=== PATIENT | female | born 1955 | race Caucasian/White ===

== ENCOUNTER 2018-03-05 16:31 | Inpatient (IN) | payer OTHER ==
[2018-03-05] MEDS ORDERED: CYCLOBENZAPRINE 10 MG TAB PO PRN ×2 (17:54→20:15)
[2018-03-05] MEDS ORDERED: oxyCODONE IR 5 MG TAB PO PRN (20:15)
[2018-03-05] MEDS ORDERED: POLYETHYLENE GLYCOL 3350 17 GM PKT PO PRN (20:17)
[2018-03-05] MEDS ORDERED: SENNOSIDES 1 TAB PO PRN (20:17)
[2018-03-05] MEDS: metFORMIN HCL 500 MG TAB PO SCH (20:41)
[2018-03-05] MEDS: oxyCODONE IR 5 MG TAB PO PRN (20:42)
[2018-03-05] MEDS: amLODIPine BESYLATE 5 MG TAB PO SCH (20:43)
[2018-03-05] MEDS: ATENOLOL 50 MG TAB PO SCH (20:43)
[2018-03-06] MEDS: LISINOPRIL 40 MG TAB PO SCH (08:42)
[2018-03-06 09:09] LABS: PLATELET COUNT 250 10^3/uL (150-400)
[2018-03-06] MEDS: TRIAMTERENE/HCTZ 37.5/25 1 EACH CAP PO SCH (11:40)
[2018-03-06] MEDS: ESTROGENS,CONJUGATED 0.625 MG TAB PO SCH (11:40)
--- NOTE | 2018-03-06 13:06 | GHP ---
POST ADMISSION PHYSICIAN EVALUATION AND REHABILITATION TREATMENT PLAN. DATE OF ADMISSION: 03/05/2018 DATE OF EVALUATION: 03/06/2018. TIME OF EVALUATION: 1125. REFERRING FACILITY: [facility]. REFERRING PHYSICIAN: Dr. Sanchez CONSULTING PHYSICIANS: None. REHABILITATION DIAGNOSIS: Debility, status post anterior cervical decompression and fusion at C5-C6 and C6-C7. IMPAIRMENT GROUP: 4.130. ETIOLOGIC DIAGNOSIS: Other nontraumatic spinal cord dysfunction. DATE OF ONSET: 03/01/2018. DATE OF SURGERY: 03/01/2018. HISTORY OF PRESENT ILLNESS: This patient has had difficulty with her gait for approximately a year. She eventually had imaging of the cervical spine done in July of this year. It showed moderate to severe central canal stenosis at C5- C6 and C6-C7. She underwent an anterior cervical decompression and fusion at C5 -C6 and C6-C7. Hospital stay was relatively uncomplicated. She had needs for pain control and she had dysphagia after her surgery. Given her gait issues and her dysphagia, she was appropriate for inpatient rehabilitation, where she was transferred once she was medically stabilized. STUDIES AND LABS IN THE HOSPITAL: I have lab results from prior to surgery. Basic metabolic profile was within normal limits. CBC was also normal. Coagulation studies were normal. PRECAUTIONS: She is a fall risk and she has aspiration precautions. Additionally, she has orthopedic spine precautions. ACTIVE COMORBIDITIES: She has the tier 2 comorbidity of dysphagia. She has the tier 3 comorbidity of diabetes mellitus, but she does not have any manifestations of it. PAST MEDICAL HISTORY: 1. Benign paroxysmal positional vertigo. 2. Hypertension. 3. Diabetes mellitus, type 2. PAST SURGICAL HISTORY: She had a cyst removed from her left breast when she was 15 years old. She has had bladder surgeries x3. PRE-HOSPITAL MEDICATIONS: 1. Amlodipine 5 mg p.o. at bedtime. 2. Atenolol 50 mg p.o. at bedtime. 3. Conjugated estrogens 0.625 mg p.o. daily. 4. Lisinopril 40 mg p.o. daily. 5. Metformin 500 mg on Sunday, Sunday, Sunday and Sunday at 2100. 6. Triamterene/hydrochlorothiazide 37.5/25 mg at bedtime. ADMISSION MEDICATIONS: 1. Amlodipine 5 mg p.o. at bedtime. 2. Atenolol 50 mg p.o. at bedtime. 3. Cyclobenzaprine 10 mg p.o. three times daily p.r.n. muscle spasm. 4. Estrogens 0.625 mg p.o. daily. 5. Lisinopril 40 mg p.o. daily. 6. Metformin 500 mg p.o. q. Sunday, Sunday, Sunday, and Sunday at 2100. 7. Oxycodone 5 mg p.o. q.4 hours p.r.n. 8. Triamterene/hydrochlorothiazide 37.5/25 mg 1 p.o. at bedtime. ALLERGIES: There are no known drug allergies. PSYCHOSOCIAL HISTORY: She lives alone in an apartment with a few steps to enter. She has an adult daughter, who is with children and lives in [place]. She had an adult son, who in 2013. She has worked in [employer]. She is a nonsmoker. FAMILY HISTORY: Noncontributory. REVIEW OF SYSTEMS: She continues to have balance and gait issues. She otherwise denies headaches, vision changes, numbness, tingling or weakness of the extremities. She says that with her vertigo, she typically has to sit for several moments before standing up when she arises from bed and similarly has to be careful with sudden position changes. She reports a history of urinary issues and says that after she finishes urinating, she spends some more time sitting on the toilet and typically urinates more. She denies fevers or chills , cough or dyspnea, weight change, nausea, vomiting, constipation, or diarrhea. She denies joint pain or joint swelling. She reports itching along her incision. She reports her pain is adequately controlled. Otherwise, a 10- point review of systems is negative. PHYSICAL EXAM: VITALS: Blood pressure is 138/90, heart rate is 67, respiratory rate is 16, oxygen saturation is 93% on room air, temperature is 36.6 degrees centigrade. Her weight is 73.9 kg for a body mass index of 26.3. GENERAL: This is a well-nourished, well-developed woman, who appears her chronologic age, sitting up on the edge of the bed, cooperative and in no acute distress. HEENT: Extraocular movements are intact. Pupils are equal, round, and reactive to light. Mucous membranes are moist. Dentition is in good condition. She has a moderately crowded airway, Mallampati class 2. NECK: Incision is covered with Steri-Strips. There is no discharge, erythema or swelling, and there is no dehiscence. HEART: There is a regular rate and rhythm, with no murmurs, rubs, or gallops. LUNGS: Clear to auscultation bilaterally. ABDOMEN: Soft, nontender, nondistended, with normoactive bowel sounds and no hepatosplenomegaly. EXTREMITIES: There is no cyanosis, clubbing , or edema. NEUROLOGIC: She is alert and oriented x3. Cranial nerves 2-12 are grossly intact. She has weakness bilaterally in the triceps. Otherwise, motor strength is 5/5 overall. Deep tendon reflexes are 2+ bilaterally at the biceps, patellar, and patellar tendons and are hypoactive at the Achilles tendon. PSYCHIATRIC: She gets tearful when discussing her son's in 2013 and her months of progressive debility. CURRENT LEVEL OF FUNCTION: Per the preadmission screen. She was on a dysphagia 2 diet with thin liquids. She is to be at 90 degrees seated while eating and her head of the bed is to be at 30 degrees at all times. She did grooming with minimal assist and voice cues. She brushed her teeth standing. Dressing upper body and lower body required minimal assist. Toileting was done with minimal assistance and adaptive equipment. Bed mobility required minimal assist. Transfers required moderate assist. She used a front-wheeled walker. Level of assistance for seated balance ranged from minimal assist to independent. Standing balance required minimal to moderate assist. Endurance was fair. She was able to ambulate with a front-wheeled walker and moderate assist of 2 with voice cues and a gait belt for 8 feet. She had loss of balance x2, requiring maximal assist to correct. She relies heavily on the walker. Communication and cognition were considered normal. She was noted to have minimal quadriceps strength. On today's exam, she is able to maintain seated balance independently, and she has normal quad strength. Otherwise, there are no significant changes from the preadmission screen. IMPRESSION: This is a 62-year-old woman, who has had longstanding issues with gait and balance, which finally were attributed to cervical spinal stenosis. She underwent surgery with an anterior cervical decompression and fusion of C5- C6 and C6-C7. She has come through surgery well, but has dysphagia, likely as a consequence of edema related to the surgical procedure, and she continues to have balance and gait difficulty. She is an excellent candidate for rehabilitation, where she will benefit greatly from speech and language pathology, as well as physical therapy and occupational therapy regarding her deficits. She has hypertension and diabetes mellitus, type 2. She reports that she has been able to exercise and lose weight and metformin has been reduced to a daily dose on 4 days of the week. She has benign paroxysmal positional vertigo, which will need to be kept in mind regarding her balance and function as she proceeds with therapies. Her goal is to complete a rehabilitation stay and then return home with home health care and durable medical equipment as needed. For a safe discharge, it is anticipated that she will achieve independence with eating, and modified independence for activities of daily living and for mobility with the least restrictive device. She will tolerate the least restrictive diet. She will maintain spinal precautions throughout all functional tasks. She will likely require assistance for household management and shopping. She will have therapy with Physical Therapy, Occupational Therapy, and Speech and Language Pathology for 60 minutes per day for each discipline on 5-7 days of the week. Her expected duration of stay is 7-10 days. It is anticipated that upon discharge, she will continue to benefit from home health services including nursing, speech and language pathology, a nurse aide, social work, occupational therapy, and physical therapy. PLAN: 1. Debility with balance impairment due to cervical spinal stenosis, now status post ACDF of C5-C6 and C6-C7 on 03/01/2018. PT and OT to optimize mobility and activities of daily living toward the modified independence level. 2. Dysphagia. Assessment and treatment per SALES REPRESENTATIVE [employer]. She was initially on a dysphagia 2 diet with thin liquids. 3. Hypertension. Continue atenolol 50 mg at bedtime, amlodipine 5 mg at bedtime, and lisinopril 40 mg p.o. daily. Will change the triamterene/ hydrochlorothiazide combination from bedtime to daily. This was done last night and she slept better without interruptions to urinate. 4. Diabetes mellitus, type 2. Continue metformin as per her dosing prior to the hospital. 5. Pain management. She has been discharged on oxycodone 5 mg q.4 hours p.r.n. I will change this to 5-10 mg q.3 hours p.r.n. to ensure that she has adequate coverage to be able to sleep well and participate in therapies. I will add acetaminophen, as well. Unclear regarding the role of cyclobenzaprine. She did not use it on her 1st evening and morning on the rehabilitation unit. 6. Postmenopausal state. Continue estrogen replacement. 7. Benign paroxysmal positional vertigo. Await further evaluation per PT and OT regarding how this affects her mobility and activities of daily living. 8. Bladder emptying abnormality, status post bladder surgery x3. She will have bladder scanning for postvoid residuals. If the residuals are markedly elevated, she may benefit from learning how to self-catheterize versus medication approaches, especially considering that oxycodone and cyclobenzaprine may interfere with bladder emptying. 9. Prophylaxis. She was using enoxaparin for pharmacologic DVT prophylaxis in the hospital. Will await progress with Physical Therapy regarding her mobility. If she is able to ambulate 150 feet or greater 3 times a day, will not continue DVT prophylaxis. If her mobility is significantly limited, we will continue enoxaparin. 10. Followup. She is to follow up with Dr. Sanchez in 2 weeks, which will be approximately March 20, 2018. It is likely that she will have discharged home before then. /[id number]/MODL MTDD
[2018-03-06] MEDS: oxyCODONE IR 5 MG TAB PO PRN (21:19)
[2018-03-06] MEDS: ATENOLOL 50 MG TAB PO SCH (21:19)
[2018-03-06] MEDS: amLODIPine BESYLATE 5 MG TAB PO SCH (21:19)
[2018-03-07] MEDS: ESTROGENS,CONJUGATED 0.625 MG TAB PO SCH (08:35)
[2018-03-07] MEDS: LISINOPRIL 40 MG TAB PO SCH (08:35)
[2018-03-07] MEDS: TRIAMTERENE/HCTZ 37.5/25 1 EACH CAP PO SCH (08:36)
[2018-03-07] MEDS ORDERED: CLOBETASOL 0.05% 25 ML TOPICAL SOLUTION TP PRN (09:45)
--- NOTE | 2018-03-07 10:02 | SOAPPROG ---
SOAP Progress Note Assessment/Plan: Assessment: Debility with balance impairment and ataxic gait due to cervical spinal stenosis , now status post ACDF of C5-C6 and C6-C7 on 03/01/2018. PT and OT to optimize mobility and activities of daily living toward the modified independence level. Dysphagia. Assessment and treatment per MARKET SALES MANAGER. She was initially on a dysphagia 2 diet with thin liquids. Hypertension. Well controlled. Continue atenolol 50 mg at bedtime, amlodipine 5 mg at bedtime, lisinopril 40 mg p.o. daily and triamterene/ hydrochlorothiazide 37.5/25 in the morning. Diabetes mellitus, type 2. Continue metformin as per her dosing prior to the hospital. Pain management. She has been discharged on oxycodone 5 mg q.4 hours p.r.n. I will change this to 5-10 mg q.3 hours p.r.n. to ensure that she has adequate coverage to be able to sleep well and participate in therapies. I will add acetaminophen, as well. Unclear regarding the role of cyclobenzaprine. Pruritus and erythema on neck where cervical collar is in contact. Prescribed clobetasol lotion p.r.n.. Nurse has covered collar with cough from a pillow case. Continue to monitor. Possible adjustment disorder, intermittently tearful. Discussed option of antidepressant and she declines the offer. She may benefit from conversation with social work. Postmenopausal state. Continue estrogen replacement. Benign paroxysmal positional vertigo. Await further evaluation per PT and OT regarding how this affects her mobility and activities of daily living. Bladder emptying abnormality, status post bladder surgery x3. She will have bladder scanning for postvoid residuals. If the residuals are markedly elevated , she may benefit from learning how to self-catheterize versus medication approaches, especially considering that oxycodone and cyclobenzaprine may interfere with bladder emptying. Prophylaxis. She was using enoxaparin for pharmacologic DVT prophylaxis in the hospital. Has ambulated as far as 150 ft, and is able to ambulate to therapy gym from room. Encourage increased ambulation. Will not prescribe pharmacologic anticoagulation. FOLLOW-UP: She is to follow up with Dr. Sanchez in 2 weeks, which will be approximately March 20, 2018. It is likely that she will have discharged home before then. 03/07/18 10:18 Subjective: Complains of itching under her cervical collar. Nurse noted a rash. Otherwise doing well. Sleeping well, minimal pain. Bowels moving. Objective: Vital Signs Temp Pulse Resp BP Pulse Ox 36.6 C 67 18 128/79 H 94 03/07/18 08:30 03/07/18 08:30 03/07/18 08:30 03/07/18 08:36 03/07/18 08:30 Laboratory Results 03/06/18 06:00 03/06/18 06:00 03/06/18 03/07/18 03/08/18 05:59 05:59 05:59 Intake Total 250 1080 Output Total 200 200 Balance 50 880 Physical Exam - Physical Exam General Appearance: WD/WN, alert, no apparent distress Respiratory: normal breath sounds, No crackles, No rhonchi, No wheezing Cardiac/Chest: regular rate, rhythm, No edema, No systolic murmur Skin: normal color, warm/dry, other (Erythematous skin where it is in contact with the cervical collar.) Neuro/Psych: alert, normal mood/affect, oriented x 3 ICD10 Worksheet Patient Problems: Problems Problem Status Onset Status post cervical spinal fusion Acute
--- NOTE | 2018-03-07 10:02 | PDOREHIP ---
Admission [facility] - Admission - 3 Day Assessment Period Admission Date/Day 1: 03/05/18 Day 2: 03/06/18 Day 3: 03/07/18 - Active Diagnoses Comorbidities and Co-existing Conditions at Admission: 37760. DM (e.g. diabetic retinopathy, nephropathy, and neuropathy) - Skin Conditions Unhealed Pressure Ulcer (1 or more/Stage 1 or >)-Admission: 0. No # Stage 1 Pressure Ulcers-Admission: 0 # Stage 2 Pressure Ulcers-Admission: 0 # Stage 3 Pressure Ulcers-Admission: 0 # Stage 4 Pressure Ulcers-Admission: 0 # Unstageable Pressure Ulcers (Non-remove Dress)-Admission: 0 # Unstageable Pressure Ulcers (Slough/Eschar)-Admission: 0 # Unstageable Pressure Ulcers (Deep Tissue Injury)-Admission: 0
[2018-03-07] MEDS ORDERED: PNEUMOC 13-VAL CONJ-DIP CRM/PF 0.5 ML SYR (PREVNAR 13) IM ONE (13:07)
[2018-03-07] MEDS: amLODIPine BESYLATE 5 MG TAB PO SCH (20:51)
[2018-03-07] MEDS: oxyCODONE IR 5 MG TAB PO PRN (20:51)
[2018-03-07] MEDS: ATENOLOL 50 MG TAB PO SCH (20:51)
[2018-03-08] MEDS: oxyCODONE IR 5 MG TAB PO PRN ×2 (04:29→21:46)
[2018-03-08] MEDS: LISINOPRIL 40 MG TAB PO SCH (08:36)
[2018-03-08] MEDS: TRIAMTERENE/HCTZ 37.5/25 1 EACH CAP PO SCH (08:37)
[2018-03-08] MEDS: ESTROGENS,CONJUGATED 0.625 MG TAB PO SCH (08:37)
--- NOTE | 2018-03-08 10:31 | SOAPPROG ---
SOAP Progress Note Assessment/Plan: Assessment: Debility with balance impairment and ataxic gait due to cervical spinal stenosis , now status post ACDF of C5-C6 and C6-C7 on 03/01/2018. * Standby assist and cues for bed mobility. Ambulated 150 ft with front wheeled walker and cues for safety. Has a scissoring gait. Climbed and descended 12 steps with bilateral rails and cues for safety. Elevated fall risk due to scissoring gait and impaired proprioception. Standby assist for ADLs. PT and OT to optimize mobility and activities of daily living toward the modified independence level. Dysphagia. * On a dysphagia 2 diet with thin liquids. 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 Hypertension. Well controlled. Continue atenolol 50 mg at bedtime, amlodipine 5 mg at bedtime, lisinopril 40 mg p.o. daily and triamterene/ hydrochlorothiazide 37.5/25 in the morning. Diabetes mellitus, type 2. Continue metformin as per her dosing prior to the hospital. Pain management. Continue oxycodone 5-10 mg q.3 hours p.r.n. and acetaminophen. Unclear regarding the role of cyclobenzaprine. * Using oxycodone 5 mg once a day in the evening, and on 03/08/2018, had a single dose of 5 mg in the school inspector. Pruritus and erythema on neck where cervical collar is in contact. Prescribed clobetasol lotion p.r.n.. Nurse has covered collar with cough from a pillow case. Continue to monitor. Possible adjustment disorder, intermittently tearful. Discussed option of antidepressant and she declines the offer. She may benefit from conversation with social work. Postmenopausal state. Continue estrogen replacement. Benign paroxysmal positional vertigo. Await further evaluation per PT and OT regarding how this affects her mobility and activities of daily living. Bladder emptying abnormality, status post bladder surgery x3. She will have bladder scanning for postvoid residuals. If the residuals are markedly elevated , she may benefit from learning how to self-catheterize versus medication approaches, especially considering that oxycodone and cyclobenzaprine may interfere with bladder emptying. Prophylaxis. She was using enoxaparin for pharmacologic DVT prophylaxis in the hospital. Has ambulated as far as 150 ft, and is able to ambulate to therapy gym from room. Encourage increased ambulation. Will not prescribe pharmacologic anticoagulation. DISPOSITION: She had been planning to discharge to the home of a friend, but she reports on 03/08/2018 that this is no longer possible and she will be discharging home alone. FOLLOW-UP: She is to follow up with Dr. Sanchez in 2 weeks, which will be approximately March 20, 2018. It is likely that she will have discharged home before then. 03/08/18 10:25 Subjective: Neck feels itchy under the collar this morning. Got her 1st topical dose of clobetasol this morning. Otherwise without complaints. Sleeping well. Pain is adequately controlled. Objective: Vital Signs Temp Pulse Resp BP Pulse Ox 36.8 C 65 90 H 108/68 90 L 03/08/18 07:52 03/08/18 08:33 03/08/18 08:33 03/08/18 08:33 03/08/18 07:52 Laboratory Results 03/06/18 06:00 03/06/18 06:00 03/07/18 03/08/18 03/09/18 05:59 05:59 05:59 Intake Total 1080 1200 440 Output Total 200 700 375 Balance 880 500 65 Physical Exam - Physical Exam General Appearance: WD/WN, alert, no apparent distress Respiratory: No respiratory distress, No accessory muscle use Skin: normal color, warm/dry Neuro/Psych: alert, normal mood/affect, oriented x 3, abnormal gait (Ataxic) ICD10 Worksheet Patient Problems: Problems Problem Status Onset Status post cervical spinal fusion Acute
[2018-03-08] MEDS: ATENOLOL 50 MG TAB PO SCH (20:02)
[2018-03-08] MEDS: amLODIPine BESYLATE 5 MG TAB PO SCH (20:03)
[2018-03-08] MEDS: metFORMIN HCL 500 MG TAB PO SCH (20:03)
[2018-03-09] MEDS: TRIAMTERENE/HCTZ 37.5/25 1 EACH CAP PO SCH (09:34)
[2018-03-09] MEDS: ESTROGENS,CONJUGATED 0.625 MG TAB PO SCH (09:35)
[2018-03-09] MEDS: LISINOPRIL 40 MG TAB PO SCH (09:35)
--- NOTE | 2018-03-09 11:22 | HOSPPROG ---
Hospitalist Progress Note Assessment/Plan: Debility with balance impairment and ataxic gait due to cervical spinal stenosis , now status post ACDF of C5-C6 and C6-C7 on 03/01/2018. * Standby assist and cues for bed mobility. Ambulated 150 ft with front wheeled walker and cues for safety. Has a scissoring gait. Climbed and descended 12 steps with bilateral rails and cues for safety. Elevated fall risk due to scissoring gait and impaired proprioception. Standby assist for ADLs. PT and OT to optimize mobility and activities of daily living toward the modified independence level. Dysphagia. * On a dysphagia 2 diet with thin liquids. * Continue WAREHOUSE WORKER 2ND SHIFT. Hypertension. Well controlled. Continue atenolol 50 mg at bedtime, amlodipine 5 mg at bedtime, lisinopril 40 mg p.o. daily and triamterene/ hydrochlorothiazide 37.5/25 in the morning. Diabetes mellitus, type 2. Continue metformin as per her dosing prior to the hospital. Pain management. Continue oxycodone 5-10 mg q.3 hours p.r.n. and acetaminophen. Unclear regarding the role of cyclobenzaprine. * Using oxycodone 5 mg once a day in the evening, and on 03/08/2018, had a single dose of 5 mg in the head of visual merchandising. Pruritus and erythema on neck where cervical collar is in contact. Prescribed clobetasol lotion p.r.n.. Nurse has covered collar with cough from a pillow case. Continue to monitor. * better 03/09 Possible adjustment disorder, intermittently tearful. Discussed option of antidepressant and she declines the offer. She may benefit from conversation with social work. Postmenopausal state. Continue estrogen replacement. Benign paroxysmal positional vertigo. Await further evaluation per PT and OT regarding how this affects her mobility and activities of daily living. Bladder emptying abnormality, status post bladder surgery x3. She will have bladder scanning for postvoid residuals. If the residuals are markedly elevated , she may benefit from learning how to self-catheterize versus medication approaches, especially considering that oxycodone and cyclobenzaprine may interfere with bladder emptying. Prophylaxis. She was using enoxaparin for pharmacologic DVT prophylaxis in the hospital. Has ambulated as far as 150 ft, and is able to ambulate to therapy gym from room. Encourage increased ambulation. Will not prescribe pharmacologic anticoagulation. Subjective: itching around neck brace is better Objective: Vital Signs Temp Pulse Resp BP Pulse Ox 36.7 C 64 16 133/87 H 93 03/09/18 07:08 03/09/18 07:08 03/09/18 07:08 03/09/18 09:35 03/09/18 07:08 Laboratory Results 03/06/18 06:00 03/06/18 06:00 03/08/18 03/09/18 03/10/18 05:59 05:59 05:59 Intake Total 1200 1120 360 Output Total 700 1975 Balance 500 -855 360 - Physical Exam Constitutional: no apparent distress, appears nourished, not in pain Eyes: anicteric sclera, EOMI Ears, Nose, Mouth, Throat: moist mucous membranes Cardiovascular: regular rate and rhythym Respiratory: no respiratory distress Gastrointestinal: normoactive bowel sounds, soft, non-tender abdomen, no palpable masses Skin: warm Musculoskeletal: full muscle strength, no muscle tenderness, normal joint ROM Neurologic: AAOx3, sensation intact bilaterally ICD10 Worksheet Patient Problems: Problems Problem Status Onset Status post cervical spinal fusion Acute
[2018-03-09] MEDS: amLODIPine BESYLATE 5 MG TAB PO SCH (20:00)
[2018-03-09] MEDS: ATENOLOL 50 MG TAB PO SCH (20:00)
[2018-03-09] MEDS: metFORMIN HCL 500 MG TAB PO SCH (20:01)
[2018-03-09] MEDS: oxyCODONE IR 5 MG TAB PO PRN (21:57)
[2018-03-10] MEDS: ESTROGENS,CONJUGATED 0.625 MG TAB PO SCH (08:18)
[2018-03-10] MEDS: LISINOPRIL 40 MG TAB PO SCH (08:18)
[2018-03-10] MEDS: TRIAMTERENE/HCTZ 37.5/25 1 EACH CAP PO SCH (08:18)
--- NOTE | 2018-03-10 11:02 | HOSPPROG ---
Hospitalist Progress Note Assessment/Plan: Debility with balance impairment and ataxic gait due to cervical spinal stenosis , now status post ACDF of C5-C6 and C6-C7 on 03/01/2018. * Standby assist and cues for bed mobility. Ambulated 150 ft with front wheeled walker and cues for safety. Has a scissoring gait. Climbed and descended 12 steps with bilateral rails and cues for safety. Elevated fall risk due to scissoring gait and impaired proprioception. Standby assist for ADLs. PT and OT to optimize mobility and activities of daily living toward the modified independence level. Dysphagia. * On a dysphagia 2 diet with thin liquids. * Continue MANAGER POOL. Hypertension. Well controlled. Continue atenolol 50 mg at bedtime, amlodipine 5 mg at bedtime, lisinopril 40 mg p.o. daily and triamterene/ hydrochlorothiazide 37.5/25 in the morning. Diabetes mellitus, type 2. Continue metformin as per her dosing prior to the hospital. Pain management. Continue oxycodone 5-10 mg q.3 hours p.r.n. and acetaminophen. Unclear regarding the role of cyclobenzaprine. * Using oxycodone 5 mg once a day in the evening, and on 03/08/2018, had a single dose of 5 mg in the medical claims manager. Pruritus and erythema on neck where cervical collar is in contact. Prescribed clobetasol lotion p.r.n.. Nurse has covered collar with cough from a pillow case. Continue to monitor. * better 03/09 and 03/10 Possible adjustment disorder, intermittently tearful. Discussed option of antidepressant and she declines the offer. She may benefit from conversation with social work. Postmenopausal state. Continue estrogen replacement. Benign paroxysmal positional vertigo. Await further evaluation per PT and OT regarding how this affects her mobility and activities of daily living. Bladder emptying abnormality, status post bladder surgery x3. She will have bladder scanning for postvoid residuals. If the residuals are markedly elevated , she may benefit from learning how to self-catheterize versus medication approaches, especially considering that oxycodone and cyclobenzaprine may interfere with bladder emptying. Prophylaxis. She was using enoxaparin for pharmacologic DVT prophylaxis in the hospital. Has ambulated as far as 150 ft, and is able to ambulate to therapy gym from room. Encourage increased ambulation. Will not prescribe pharmacologic anticoagulation. Subjective: some pain in betweens shoulders, itching is resolved Objective: Vital Signs Temp Pulse Resp BP Pulse Ox 36.6 C 63 16 143/71 H 93 03/10/18 06:02 03/10/18 06:02 03/10/18 06:02 03/10/18 06:02 03/10/18 06:02 Laboratory Results 03/06/18 06:00 03/06/18 06:00 03/09/18 03/10/18 03/11/18 05:59 05:59 05:59 Intake Total 1120 1100 900 Output Total 1975 400 310 Balance -855 700 590 - Physical Exam Constitutional: no apparent distress, appears nourished, not in pain Eyes: anicteric sclera Ears, Nose, Mouth, Throat: hearing normal Respiratory: no respiratory distress Neurologic: AAOx3 Psychiatric: interacting appropriately, not anxious, not encephalopathic, thought process linear ICD10 Worksheet Patient Problems: Problems Problem Status Onset Status post cervical spinal fusion Acute
[2018-03-10] MEDS: ATENOLOL 50 MG TAB PO SCH (20:13)
[2018-03-10] MEDS: amLODIPine BESYLATE 5 MG TAB PO SCH (20:13)
[2018-03-10] MEDS: oxyCODONE IR 5 MG TAB PO PRN (21:00)
[2018-03-10] MEDS: ACETAMINOPHEN 325 MG TAB PO PRN (23:38)
[2018-03-11] MEDS: ESTROGENS,CONJUGATED 0.625 MG TAB PO SCH (08:45)
[2018-03-11] MEDS: TRIAMTERENE/HCTZ 37.5/25 1 EACH CAP PO SCH (08:45)
[2018-03-11] MEDS: LISINOPRIL 40 MG TAB PO SCH (08:45)
--- NOTE | 2018-03-11 11:09 | SOAPPROG ---
SOAP Progress Note Assessment/Plan: Assessment: Debility with balance impairment and ataxic gait due to cervical spinal stenosis , now status post ACDF of C5-C6 and C6-C7 on 03/01/2018. * Initial functional independence measure is 92. Standby assist for bed mobility and transfer with a front wheeled walker. Ambulated 120 ft standby assist to contact guard assist with a front wheeled walker. She has a narrow base and occasional scissoring. She climbed and descended 12 stairs with 2 rails, contact guard assist. She is noted to have impulsivity. She has decreased fine motor control. Standby assist for dressing. Supervision for toilet transfer. Grooming and hygiene are done standing with cues for posture. * Continue PT and OT to optimize mobility and activities of daily living toward the modified independence level. Dysphagia. * Advanced to regular textures and thin liquids on 03/10/2018. * Continue BURLAPPER. Cognitive impairment. Scored 20/30 on the [place] cognitive Assessment Test. Has decreased to be a executive function, recall and attention. Concerns regarding higher mental tasks such as bill paying. She appears to know her medications. * Query rather sleep deficit is impacting cognition. Trial of trazodone ordered as needed starting 03/11/2018. May also sleep better with change of cervical collar. * Continue BURLAPPER. Concern regarding fit of [place] collar. She reports it takes into the back of her head. Nursing is concerned about possible skin breakdown. Discomfort is interfering with sleep. * Trial of [place] J collar starting 03/11/2018. Hypertension. Well controlled. Continue atenolol 50 mg at bedtime, amlodipine 5 mg at bedtime, lisinopril 40 mg p.o. daily and triamterene/ hydrochlorothiazide 37.5/25 in the morning. Diabetes mellitus, type 2. Continue metformin as per her dosing prior to the hospital. Pain management. Continue oxycodone 5-10 mg q.3 hours p.r.n. and acetaminophen. Not using cyclobenzaprine; will discontinue 03/11/2018.. * Using oxycodone 5 mg once a day in the evening, and occasional in the fur cutting machine operator. Pruritus and erythema on neck where cervical collar is in contact. Prescribed clobetasol lotion p.r.n.. Nurse has covered collar with cough from a pillow case. * Resolved Possible adjustment disorder, intermittently tearful. Discussed option of antidepressant and she declines the offer. She may benefit from conversation with social work. Postmenopausal state. Continue estrogen replacement. Benign paroxysmal positional vertigo. Await further evaluation per PT and OT regarding how this affects her mobility and activities of daily living. Bladder emptying abnormality, status post bladder surgery x3. She will have bladder scanning for postvoid residuals. If the residuals are markedly elevated , she may benefit from learning how to self-catheterize versus medication approaches, especially considering that oxycodone and cyclobenzaprine may interfere with bladder emptying. Prophylaxis. She was using enoxaparin for pharmacologic DVT prophylaxis in the hospital. Has ambulated as far as 150 ft, and is able to ambulate to therapy gym from room. Encourage increased ambulation. Will not prescribe pharmacologic anticoagulation. DISPOSITION: Lives alone in a lower level apartment, with landlady living of stairs. There are 2 steps up into the home than 11 steps down to the apartment. She will need to be fully independent. Tentative discharge date set for 03/15/2018. FOLLOW-UP: She is to follow up with Dr. Sanchez in 2 weeks, which will be approximately March 20, 2018. It is likely that she will have discharged home before then. 03/11/18 11:33 Objective: Vital Signs Temp Pulse Resp BP Pulse Ox 36.6 C 58 L 16 117/57 L 92 03/11/18 08:00 03/11/18 08:00 03/11/18 08:00 03/11/18 08:00 03/11/18 08:00 Laboratory Results 03/06/18 06:00 03/06/18 06:00 03/10/18 03/11/18 03/12/18 05:59 05:59 05:59 Intake Total 1100 1380 Output Total 400 1060 Balance 700 320 - Time Spent With Patient Time Spent With Patient: Greater than 35 min floor time today, including more than 50% of time in coordination of care during staffing meeting, and counseling patient. Physical Exam - Physical Exam General Appearance: WD/WN, alert, no apparent distress Respiratory: No respiratory distress, No accessory muscle use Skin: normal color, warm/dry Neuro/Psych: alert, normal mood/affect, oriented x 3 ICD10 Worksheet Patient Problems: Problems Problem Status Onset Status post cervical spinal fusion Acute
[2018-03-11] MEDS ORDERED: traZODone 50 MG TAB PO PRN (11:47)
[2018-03-11] MEDS: metFORMIN HCL 500 MG TAB PO SCH (20:38)
[2018-03-11] MEDS: amLODIPine BESYLATE 5 MG TAB PO SCH (20:38)
[2018-03-11] MEDS: ATENOLOL 50 MG TAB PO SCH (20:38)
[2018-03-11] MEDS: ACETAMINOPHEN 325 MG TAB PO PRN (21:07)
[2018-03-12] MEDS: ACETAMINOPHEN 325 MG TAB PO PRN ×2 (03:30→22:43)
[2018-03-12] MEDS: ESTROGENS,CONJUGATED 0.625 MG TAB PO SCH (07:57)
[2018-03-12] MEDS: LISINOPRIL 40 MG TAB PO SCH (07:57)
[2018-03-12] MEDS: TRIAMTERENE/HCTZ 37.5/25 1 EACH CAP PO SCH (07:58)
--- NOTE | 2018-03-12 12:20 | SOAPPROG ---
SOAP Progress Note Assessment/Plan: Assessment: Debility with balance impairment and ataxic gait due to cervical spinal stenosis , now status post ACDF of C5-C6 and C6-C7 on 03/01/2018. * Initial functional independence measure is 92. Standby assist for bed mobility and transfer with a front wheeled walker. Ambulated 120 ft standby assist to contact guard assist with a front wheeled walker. She has a narrow base and occasional scissoring. She climbed and descended 12 stairs with 2 rails, contact guard assist. She is noted to have impulsivity. She has decreased fine motor control. Standby assist for dressing. Supervision for toilet transfer. Grooming and hygiene are done standing with cues for posture. * Continue PT and OT to optimize mobility and activities of daily living toward the modified independence level. Dysphagia. * Advanced to regular textures and thin liquids on 03/10/2018. * Continue SUPERVISOR SLEEPING BAG DEPARTMENT. Cognitive impairment. Scored 20/30 on the [place] cognitive Assessment Test. Has decreased to be a executive function, recall and attention. Concerns regarding higher mental tasks such as bill paying. She appears to know her medications. * Query rather sleep deficit is impacting cognition. Trial of trazodone ordered as needed starting 03/11/2018; did not need on 03/11/2018.. May also sleep better with change of cervical collar. * Continue SUPERVISOR SLEEPING BAG DEPARTMENT. Concern regarding fit of [place] collar. She reports it takes into the back of her head. Nursing is concerned about possible skin breakdown. Discomfort is interfering with sleep. * Trial of [place] J collar starting 03/11/2018. Hypertension. Well controlled. Continue atenolol 50 mg at bedtime, amlodipine 5 mg at bedtime, lisinopril 40 mg p.o. daily and triamterene/ hydrochlorothiazide 37.5/25 in the morning. Diabetes mellitus, type 2. Continue metformin as per her dosing prior to the hospital. Pain management. Continue oxycodone 5-10 mg q.3 hours p.r.n. and acetaminophen. Not used since 03/10/2018. Not using cyclobenzaprine; discontinued 03/11/2018.. Pruritus and erythema on neck where cervical collar is in contact. Prescribed clobetasol lotion p.r.n.. Nurse has covered collar with cough from a pillow case. * Resolved Possible adjustment disorder, intermittently tearful. Discussed option of antidepressant and she declines the offer. She may benefit from conversation with social work. Postmenopausal state. Continue estrogen replacement. Benign paroxysmal positional vertigo. Await further evaluation per PT and OT regarding how this affects her mobility and activities of daily living. Bladder emptying abnormality, status post bladder surgery x3. She will have bladder scanning for postvoid residuals. If the residuals are markedly elevated , she may benefit from learning how to self-catheterize versus medication approaches, especially considering that oxycodone and cyclobenzaprine may interfere with bladder emptying. Prophylaxis. She was using enoxaparin for pharmacologic DVT prophylaxis in the hospital. Has ambulated as far as 150 ft, and is able to ambulate to therapy gym from room. Encourage increased ambulation. Will not prescribe pharmacologic anticoagulation. DISPOSITION: Lives alone in a lower level apartment, with landlady living upstairs. There are 2 steps up into the home than 11 steps down to the apartment. She will need to be fully independent. Tentative discharge date set for 03/15/2018. FOLLOW-UP: She is to follow up with Dr. Sanchez in 2 weeks, which will be approximately March 20, 2018. It is likely that she will have discharged home before then. 03/12/18 12:18 Subjective: No complaints. Slept well. Pain is well controlled with only acetaminophen. Has been fitted with a new collar, [place] J rather than [place], which is more comfortable. Objective: Vital Signs Temp Pulse Resp BP Pulse Ox 36.7 C 58 L 16 113/71 91 L 03/12/18 07:59 03/12/18 07:59 03/12/18 07:59 03/12/18 07:58 03/12/18 07:59 Laboratory Results 03/06/18 06:00 03/06/18 06:00 03/11/18 03/12/18 03/13/18 05:59 05:59 05:59 Intake Total 1380 1100 Output Total 1060 1300 Balance 320 -200 Physical Exam - Physical Exam General Appearance: WD/WN, alert, no apparent distress Respiratory: normal breath sounds, No crackles, No rhonchi, No wheezing Cardiac/Chest: regular rate, rhythm, No edema, No diastolic murmur, No systolic murmur Skin: normal color, warm/dry Neuro/Psych: alert, normal mood/affect, oriented x 3, abnormal gait (With front wheeled walker, narrow based, Trendelenburg bilaterally.) ICD10 Worksheet Patient Problems: Problems Problem Status Onset Status post cervical spinal fusion Acute
[2018-03-12] MEDS: ATENOLOL 50 MG TAB PO SCH (20:31)
[2018-03-12] MEDS: metFORMIN HCL 500 MG TAB PO SCH (20:31)
[2018-03-12] MEDS: amLODIPine BESYLATE 5 MG TAB PO SCH (20:33)
[2018-03-13] MEDS: ESTROGENS,CONJUGATED 0.625 MG TAB PO SCH (09:34)
--- NOTE | 2018-03-13 09:58 | SOAPPROG ---
SOAP Progress Note Assessment/Plan: Assessment: Debility with balance impairment and ataxic gait due to cervical spinal stenosis , now status post ACDF of C5-C6 and C6-C7 on 03/01/2018. * Initial functional independence measure is 92 on 03/11/2018. Standby assist for bed mobility and transfer with a front wheeled walker. Ambulated 120 ft standby assist to contact guard assist with a front wheeled walker. She has a narrow base and occasional scissoring. She climbed and descended 12 stairs with 2 rails, contact guard assist. She is noted to have impulsivity. She has decreased fine motor control. Standby assist for dressing. Supervision for toilet transfer. Grooming and hygiene are done standing with cues for posture. * Continue PT and OT to optimize mobility and activities of daily living toward the modified independence level. Dysphagia. * Advanced to regular textures and thin liquids on 03/10/2018. * Continue LOAD MANAGER. Cognitive impairment. Scored 20/30 on the [place] cognitive Assessment Test. Has decreased to be a executive function, recall and attention. Concerns regarding higher mental tasks such as bill paying. She appears to know her medications. * Query rather sleep deficit is impacting cognition. Trial of trazodone ordered as needed starting 03/11/2018; has not used.. May also sleep better with change of cervical collar. * Continue LOAD MANAGER. Much less discomfort with [place] J collar initiated 03/11/2018, rather than [place] collar. Hypertension. Well controlled. Continue atenolol 50 mg at bedtime, amlodipine 5 mg at bedtime and triamterene/hydrochlorothiazide 37.5/25 in the morning. Per her request, change lisinopril 40 mg from morning to evening, starting 03/14. Diabetes mellitus, type 2. Continue metformin as per her dosing prior to the hospital. Pain management. Continue oxycodone 5-10 mg q.3 hours p.r.n. and acetaminophen. Not used since 03/10/2018. Not using cyclobenzaprine; discontinued 03/11/2018.. Pruritus and erythema on neck where cervical collar is in contact. Prescribed clobetasol lotion p.r.n.. Nurse has covered collar with cough from a pillow case. * Resolved Possible adjustment disorder, intermittently tearful. Discussed option of antidepressant and she declines the offer. She may benefit from conversation with social work. Postmenopausal state. Continue estrogen replacement. Benign paroxysmal positional vertigo. Await further evaluation per PT and OT regarding how this affects her mobility and activities of daily living. Bladder emptying abnormality, status post bladder surgery x3. She will have bladder scanning for postvoid residuals. If the residuals are markedly elevated , she may benefit from learning how to self-catheterize versus medication approaches, especially considering that oxycodone and cyclobenzaprine may interfere with bladder emptying. Prophylaxis. She was using enoxaparin for pharmacologic DVT prophylaxis in the hospital. Has ambulated as far as 150 ft, and is able to ambulate to therapy gym from room. Encourage increased ambulation. Will not prescribe pharmacologic anticoagulation. DISPOSITION: Lives alone in a lower level apartment, with landlady living upstairs. There are 2 steps up into the home than 11 steps down to the apartment. She will need to be fully independent. Tentative discharge date set for 03/15/2018. FOLLOW-UP: She is to follow up with Dr. Sanchez in 2 weeks, which will be approximately March 20, 2018. It is likely that she will have discharged home before then. JUSTIFICATION FOR WALKER: This patient has a mobility limitation that significantly impairs 1 or more mobility-related ADLs in the home. She can use a walker safely. Her functional mobility deficit cannot be resolved with a cane. 03/13/18 09:55 Subjective: Requests all medications be given at HS except for triamterene/ hydrochlorothiazide. She reports she has had improvement in urination at night from 2-3 times to 1 time it since changing that medication to the morning. Otherwise without complaint. More comfortable and slept well with change from [place] collar to [place] J collar. Objective: Vital Signs Temp Pulse Resp BP Pulse Ox 37.0 C 64 16 113/47 L 92 03/12/18 18:59 03/12/18 20:31 03/12/18 18:59 03/12/18 20:33 03/12/18 18:59 Laboratory Results 03/06/18 06:00 03/06/18 06:00 03/12/18 03/13/18 03/14/18 05:59 05:59 05:59 Intake Total 1100 400 740 Output Total 1300 400 Balance -200 0 740 Physical Exam - Physical Exam General Appearance: WD/WN, alert, no apparent distress Respiratory: No respiratory distress, No accessory muscle use Skin: normal color, warm/dry Neuro/Psych: alert, normal mood/affect, oriented x 3, cognition abnormalities ( [place] thinking, word-finding difficulty.) ICD10 Worksheet Patient Problems: Problems Problem Status Onset Status post cervical spinal fusion Acute
[2018-03-13] MEDS: TRIAMTERENE/HCTZ 37.5/25 1 EACH CAP PO SCH (10:33)
[2018-03-13] MEDS: LISINOPRIL 40 MG TAB PO SCH (10:33)
[2018-03-13] MEDS: ACETAMINOPHEN 325 MG TAB PO PRN (17:08)
[2018-03-13] MEDS: amLODIPine BESYLATE 5 MG TAB PO SCH (19:54)
[2018-03-13] MEDS: ATENOLOL 50 MG TAB PO SCH (19:55)
[2018-03-13] MEDS: oxyCODONE IR 5 MG TAB PO PRN (21:51)
[2018-03-14] MEDS: ACETAMINOPHEN 325 MG TAB PO PRN ×3 (02:24→20:25)
[2018-03-14] MEDS: TRIAMTERENE/HCTZ 37.5/25 1 EACH CAP PO SCH (08:45)
--- NOTE | 2018-03-14 08:51 | SOAPPROG ---
SOAP Progress Note Assessment/Plan: 63-year-old woman status post ACDF of C5-C6 and C6-C7 on 03/01/2018 because of spinal stenosis. Presented with ataxic gait and weakness. Today's update: Doing well in therapies and continuing rehab plan. She has dry skin and pruritus which is improved with [id number] hydration cream. She endorses that her thinking and memory is continuing to improve. She has a follow-up appointment with her surgeon tomorrow. Pain controlled, hypertension controlled. Total of 20 min was spent on the floor in the care of the patient, the majority of which was spent in counseling and coordination of care regarding rehab progress and coordination with therapies. Additional issues reviewed without change today include dysphagia, diabetes type 2, pain management, postmenopausal state, benign paroxysmal positional vertigo. 03/14/18 08:47 Subjective: Chief complaint: Pruritus and rehab progress No acute events overnight. Patient denies any new shortness of breath or chest pain, no new numbness, tingling, or weakness. She endorses ongoing pruritus underneath her [place] J collar and has been using cream for dry skin in general. She feels that this has been helpful. Therapies have been going well, she has a physician appointment with her surgeon tomorrow. She has no other new concerns. Objective: Vital Signs Temp Pulse Resp BP Pulse Ox 36.5 C 62 16 111/55 L 95 03/14/18 06:38 03/14/18 06:38 03/14/18 06:38 03/14/18 08:45 03/14/18 06:38 Laboratory Results 03/06/18 06:00 03/06/18 06:00 03/13/18 03/14/18 03/15/18 05:59 05:59 05:59 Intake Total 400 1380 Output Total 400 Balance 0 1380 Physical Exam - Physical Exam General Appearance: WD/WN, alert, no apparent distress EENT: No scleral icterus (R), No scleral icterus (L) Neck: other (Cervical collar in place, appears to be fitting well) Respiratory: No respiratory distress, No accessory muscle use Cardiac/Chest: normal peripheral pulses, regular rate, rhythm, No edema Skin: normal color, warm/dry, No cyanosis, No diaphoresis Extremities: No pedal edema, No swelling Neuro/Psych: alert, normal mood/affect ICD10 Worksheet Patient Problems: Problems Problem Status Onset Status post cervical spinal fusion Acute
[2018-03-14] MEDS: ESTROGENS,CONJUGATED 0.625 MG TAB PO SCH (20:24)
[2018-03-14] MEDS: LISINOPRIL 40 MG TAB PO SCH (20:24)
[2018-03-14] MEDS: amLODIPine BESYLATE 5 MG TAB PO SCH (20:25)
[2018-03-14] MEDS: ATENOLOL 50 MG TAB PO SCH (20:28)
[2018-03-15] MEDS: TRIAMTERENE/HCTZ 37.5/25 1 EACH CAP PO SCH (07:52)
--- NOTE | 2018-03-15 09:59 | SOAPPROG ---
SOAP Progress Note Assessment/Plan: Assessment: Debility with balance impairment and ataxic gait due to cervical spinal stenosis , now status post ACDF of C5-C6 and C6-C7 on 03/01/2018. * Initial functional independence measure is 92 on 03/11/2018; improved to 100 as of 03/15/2018. Generally moving towards independence with mobility but requires contact guard to minimal assist for descending stairs. Ambulates greater than 150 ft with front wheeled walker and supervision. 44/56 on the Sin balance inventory. Independent to standby assist for ADLs. * Continue PT and OT to optimize mobility and activities of daily living toward the modified independence level. Dysphagia. * Advanced to regular textures and thin liquids on 03/10/2018. * Continue FRAMING MECHANIC. Cognitive impairment. Scored 20/30 on the [place] cognitive Assessment Test; improved to 20 4/30 as of 03/14/2018. Continues to have decreased memory, executive function and insight. Has concrete thinking. * Continue FRAMING MECHANIC. Much less discomfort with [place] collar initiated 03/11/2018, rather than [place] collar. Dental pain. Advised use of her Sensodyne toothpaste while she is on inpatient rehabilitation. Hypertension. Well controlled. Continue atenolol 50 mg at bedtime, amlodipine 5 mg at bedtime and triamterene/hydrochlorothiazide 37.5/25 in the morning. Per her request, change lisinopril 40 mg from morning to evening, starting 03/14. Diabetes mellitus, type 2. Continue metformin as per her dosing prior to the hospital. Pain management. Continue oxycodone 5-10 mg q.3 hours p.r.n. and acetaminophen. Not used since 03/13/2018. Not using cyclobenzaprine; discontinued 03/11/2018.. Pruritus and erythema on neck where cervical collar is in contact. Prescribed clobetasol lotion p.r.n.. Nurse has covered collar with cough from a pillow case. * Resolved Possible adjustment disorder, intermittently tearful. Discussed option of antidepressant and she declines the offer. She may benefit from conversation with social work. Postmenopausal state. Continue estrogen replacement. Benign paroxysmal positional vertigo. Await further evaluation per PT and OT regarding how this affects her mobility and activities of daily living. Bladder emptying abnormality, status post bladder surgery x3. She will have bladder scanning for postvoid residuals. If the residuals are markedly elevated , she may benefit from learning how to self-catheterize versus medication approaches, especially considering that oxycodone and cyclobenzaprine may interfere with bladder emptying. Prophylaxis. She was using enoxaparin for pharmacologic DVT prophylaxis in the hospital. Has ambulated as far as 150 ft, and is able to ambulate to therapy gym from room. Encourage increased ambulation. Will not prescribe pharmacologic anticoagulation. DISPOSITION: Attended staffing, 15 min. Discussed with case management, dietitian, nursing, PT, OT, FRAMING MECHANIC. Lives alone in a lower level apartment, with landlady living upstairs. There are 2 steps up into the home than 11 steps down to the apartment. She will need to be fully independent. Tentative discharge date set for 03/22/2018. FOLLOW-UP: She is to follow up with Dr. Sanchez in 2 weeks, which will be approximately March 20, 2018. She can follow up after her discharge.. JUSTIFICATION FOR WALKER: This patient has a mobility limitation that significantly impairs 1 or more mobility-related ADLs in the home. She can use a walker safely. Her functional mobility deficit cannot be resolved with a cane. 03/15/18 12:41 Subjective: Still has some itching around her cervical collar but the new collar is more comfortable than the old. Slept well. Has some tooth pain in her left mandible. Says she gets a deep periodontal cleaning and her dentist thinks that something may have gotten down deep adjacent to the tooth; further tooth cleaning has been postponed until after her surgery to reduce the risk of bacteremia. She reports she uses Sensodyne toothpaste at home but is not using it here. Otherwise without complaints. Objective: Vital Signs Temp Pulse Resp BP Pulse Ox 36.4 C 54 L 16 134/78 H 91 L 03/15/18 07:18 03/15/18 07:18 03/15/18 07:18 03/15/18 07:52 03/15/18 07:18 Laboratory Results 03/06/18 06:00 03/06/18 06:00 03/14/18 03/15/18 03/16/18 05:59 05:59 05:59 Intake Total 1380 1400 Balance 1380 1400 - Time Spent With Patient Time Spent With Patient: Greater than 35 min floor time today, including more than 50% of time in coordination of care during staffing meeting, and counseling patient. Physical Exam - Physical Exam General Appearance: WD/WN, alert, no apparent distress Respiratory: No respiratory distress, No accessory muscle use Skin: normal color, warm/dry Neuro/Psych: no motor/sensory deficits, alert, normal mood/affect, oriented x 3 ICD10 Worksheet Patient Problems: Problems Problem Status Onset Status post cervical spinal fusion Acute
[2018-03-15] MEDS: ESTROGENS,CONJUGATED 0.625 MG TAB PO SCH (20:31)
[2018-03-15] MEDS: metFORMIN HCL 500 MG TAB PO SCH (20:31)
[2018-03-15] MEDS: LISINOPRIL 40 MG TAB PO SCH (20:32)
[2018-03-15] MEDS: amLODIPine BESYLATE 5 MG TAB PO SCH (20:32)
[2018-03-15] MEDS: ATENOLOL 50 MG TAB PO SCH (20:32)
[2018-03-15] MEDS: ACETAMINOPHEN 325 MG TAB PO PRN (23:50)
[2018-03-16] MEDS: ACETAMINOPHEN 325 MG TAB PO PRN ×3 (09:45→20:28)
[2018-03-16] MEDS: TRIAMTERENE/HCTZ 37.5/25 1 EACH CAP PO SCH (09:46)
--- NOTE | 2018-03-16 09:57 | SOAPPROG ---
SOAP Progress Note Assessment/Plan: Assessment: Debility with balance impairment and ataxic gait due to cervical spinal stenosis , now status post ACDF of C5-C6 and C6-C7 on 03/01/2018. * Initial functional independence measure is 92 on 03/11/2018; improved to 100 as of 03/15/2018. Generally moving towards independence with mobility but requires contact guard to minimal assist for descending stairs. Ambulates greater than 150 ft with front wheeled walker and supervision. 44/56 on the Sin balance inventory. Independent to standby assist for ADLs. REPORTS IMPROVED QUALITY OF GAIT AND LOWER EXTREMITY STRENGTH. * Continue PT and OT to optimize mobility and activities of daily living toward the modified independence level. Dysphagia. * Advanced to regular textures and thin liquids on 03/10/2018. * Continue JEWELRY MODEL MAKER. Cognitive impairment. Scored 20/30 on the [place] cognitive Assessment Test; improved to 20 4/30 as of 03/14/2018. Continues to have decreased memory, executive function and insight. Has concrete thinking. * Continue JEWELRY MODEL MAKER. Much less discomfort with [place] collar initiated 03/11/2018, rather than [place] collar. Dental pain. Advised use of her Sensodyne toothpaste while she is on inpatient rehabilitation. Hypertension. BLOOD PRESSURE 03/16/18 104/60. Continue atenolol 50 mg at bedtime, amlodipine 5 mg at bedtime and triamterene/hydrochlorothiazide 37.5/25 in the morning. Per her request, change lisinopril 40 mg from morning to evening, starting 03/14/2018. Diabetes mellitus, type 2. Continue metformin as per her dosing prior to the hospital. Pain management. Continue oxycodone 5-10 mg q.3 hours p.r.n. and acetaminophen. Not used since 03/13/2018. Not using cyclobenzaprine; discontinued 03/11/2018. SHE REPORTS SOME UPPER TRAPEZIAL RIDGE PAIN AND HER PHYSICAL THERAPIST HAS RECOMMENDED MASSAGE IN THAT REGION WHICH CAN BE ARRANGED ON SUNDAY. ADVISED PATIENT TO APPLY ICE PACKS 20 MIN RIGHT AND LEFT UPPER TRAPEZIAL RIDGES FOR MUSCLE PAIN. Pruritus and erythema on neck where cervical collar is in contact. Prescribed clobetasol lotion p.r.n.. Nurse has covered collar with cough from a pillow case. * Resolved Possible adjustment disorder, intermittently tearful. Discussed option of antidepressant and she declines the offer. She may benefit from conversation with social work. Postmenopausal state. Continue estrogen replacement. Benign paroxysmal positional vertigo. Await further evaluation per PT and OT regarding how this affects her mobility and activities of daily living. Bladder emptying abnormality, status post bladder surgery x3. She will have bladder scanning for postvoid residuals. If the residuals are markedly elevated , she may benefit from learning how to self-catheterize versus medication approaches, especially considering that oxycodone and cyclobenzaprine may interfere with bladder emptying. WILL CHECK WITH NURSING REGARDING POSTVOID RESIDUALS Prophylaxis. She was using enoxaparin for pharmacologic DVT prophylaxis in the hospital. Has ambulated as far as 150 ft, and is able to ambulate to therapy gym from room. Encourage increased ambulation. Will not prescribe pharmacologic anticoagulation. Plan: 03/16/18 09:54 Subjective: SHE IS COMPLAINING OF A LITTLE BIT OF RIGHT AND LEFT UPPER TRAPEZIAL RIDGE PAIN. SHE DOES NOT REPORT UPPER OR LOWER EXTREMITY SENSORY DISTURBANCE. SHE REPORTS THAT HER LOWER EXTREMITY STRENGTH AND GAIT ARE IMPROVING Objective: Vital Signs Temp Pulse Resp BP Pulse Ox 36.4 C 60 18 104/60 96 03/16/18 05:30 03/16/18 05:30 03/16/18 05:30 03/16/18 09:46 03/16/18 05:30 Laboratory Results 03/06/18 06:00 03/06/18 06:00 03/15/18 03/16/18 03/17/18 05:59 05:59 05:59 Intake Total 1400 540 320 Balance 1400 540 320 Physical Exam - Physical Exam General Appearance: WD/WN, alert, no apparent distress Neck: other (HARD CERVICAL COLLAR IN PLACE) Respiratory: lungs clear, normal breath sounds Abdomen: non-tender, soft Extremities: No swelling, No Le's sign Neuro/Psych: alert, normal mood/affect, oriented x 3 (4/5 STRENGTH PROXIMAL AND DISTAL MUSCLES OF BOTH LOWER EXTREMITIES) ICD10 Worksheet Patient Problems: Problems Problem Status Onset Status post cervical spinal fusion Acute
[2018-03-16] MEDS: LISINOPRIL 40 MG TAB PO SCH (20:25)
[2018-03-16] MEDS: ESTROGENS,CONJUGATED 0.625 MG TAB PO SCH (20:25)
[2018-03-16] MEDS: metFORMIN HCL 500 MG TAB PO SCH (20:25)
[2018-03-16] MEDS: ATENOLOL 50 MG TAB PO SCH (20:25)
[2018-03-16] MEDS: amLODIPine BESYLATE 5 MG TAB PO SCH (20:25)
--- NOTE | 2018-03-17 10:35 | SOAPPROG ---
SOAP Progress Note Assessment/Plan: Assessment: Debility with balance impairment and ataxic gait due to cervical spinal stenosis , now status post ACDF of C5-C6 and C6-C7 on 03/01/2018. * Initial functional independence measure is 92 on 03/11/2018; improved to 100 as of 03/15/2018. Generally moving towards independence with mobility but requires contact guard to minimal assist for descending stairs. Ambulates greater than 150 ft with front wheeled walker and supervision. 44/56 on the Sin balance inventory. Independent to standby assist for ADLs. ON 03/17 NURSING REPORTS SAFETY CONCERNS WITH PATIENT LIVING ALONE DUE TO UNSTEADY GAIT SECONDARY TO SCISSORING. PHYSICAL THERAPY CAN ADDRESS SAFETY ISSUES ON TEAM MEETING NEXT WEEK. IF PATIENT IS FELT TO BE SAFETY RISK THEN SHE MAY BENEFIT FROM A LONGER COURSE OF PHYSICAL THERAPY, PROVIDED INSURANCE WILL COVER THIS AND REHAB TEAM AGREES * Continue PT and OT to optimize mobility and activities of daily living toward the modified independence level. Dysphagia. * Advanced to regular textures and thin liquids on 03/10/2018. * Continue WOOD CARVING MACHINE OPERATOR. Cognitive impairment. Scored 20/30 on the [place] cognitive Assessment Test; improved to 20 4/30 as of 03/14/2018. Continues to have decreased memory, executive function and insight. Has concrete thinking. * Continue WOOD CARVING MACHINE OPERATOR. Much less discomfort with [place] J collar initiated 03/11/2018, rather than [place] collar. Dental pain. Advised use of her Sensodyne toothpaste while she is on inpatient rehabilitation. Hypertension. BLOOD PRESSURE WELL CONTROLLED , 127/68 ON 03/17. Continue atenolol 50 mg at bedtime, amlodipine 5 mg at bedtime and triamterene/ hydrochlorothiazide 37.5/25 in the morning. Per her request, change lisinopril 40 mg from morning to evening, starting 03/14/2018. Diabetes mellitus, type 2. Continue metformin as per her dosing prior to the hospital. Pain management. Continue oxycodone 5-10 mg q.3 hours p.r.n. and acetaminophen. Not used since 03/13/2018. Not using cyclobenzaprine; discontinued 03/11/2018. DENIES CERVICAL PARASPINAL PAIN OR SPASM. DENIES SPASMS IN THE RIGHT OR LEFT UPPER TRAPEZII. SHE CAN HAVE MASSAGE THERAPY TOMORROW FOR SCAPULOTHORACIC PAIN IF SHE SO DESIRES. Pruritus and erythema on neck where cervical collar is in contact. Prescribed clobetasol lotion p.r.n.. Nurse has covered collar with cough from a pillow case. * Resolved Possible adjustment disorder, intermittently tearful. Discussed option of antidepressant and she declines the offer. She may benefit from conversation with social work. Postmenopausal state. Continue estrogen replacement. Benign paroxysmal positional vertigo. Await further evaluation per PT and OT regarding how this affects her mobility and activities of daily living. Bladder emptying abnormality, status post bladder surgery x3. She will have bladder scanning for postvoid residuals. If the residuals are markedly elevated , she may benefit from learning how to self-catheterize versus medication approaches, especially considering that oxycodone and cyclobenzaprine may interfere with bladder emptying. ON 03/27 NURSING REPORTS POSTVOID RESIDUAL OF 0 LAST P.M. Prophylaxis. She was using enoxaparin for pharmacologic DVT prophylaxis in the hospital. Has ambulated as far as 150 ft, and is able to ambulate to therapy gym from room. Encourage increased ambulation. Will not prescribe pharmacologic anticoagulation. Plan: 03/16/18 09:54 03/17/18 10:33 03/17/18 10:35 03/17/18 10:36 03/17/18 10:39 Subjective: SHE REPORTS SHE IS DOING WELL SHE DOES NOT HAVE ANY NEW ONSET OF UPPER LOWER EXTREMITY SENSORY DISTURBANCE OR WEAKNESS. SHE DENIES SPASMS IN THE CERVICAL PARASPINAL OR RIGHT AND LEFT UPPER TRAPEZIAL REGION. NURSING REPORTS SOME FORGETFULNESS AND SCISSORING GAIT WHILE WALKING, BRINGING UP CONCERNS FOR SAFETY. Objective: Vital Signs Temp Pulse Resp BP Pulse Ox 36.5 C 60 16 127/68 H 95 03/17/18 06:03 03/17/18 06:03 03/17/18 06:03 03/17/18 06:03 03/17/18 06:03 Laboratory Results 03/06/18 06:00 03/06/18 06:00 03/16/18 03/17/18 03/18/18 05:59 05:59 05:59 Intake Total 540 2840 Output Total 275 Balance 540 2565 Physical Exam - Physical Exam General Appearance: WD/WN, alert, no apparent distress Neck: non-tender, other (HARD COLLAR IN PLACE) Respiratory: lungs clear, normal breath sounds Cardiac/Chest: No edema Abdomen: normal bowel sounds, non-tender, soft Skin: normal color Extremities: No swelling, No Le's sign Neuro/Psych: motor weakness (4+/5 UPPER AND LOWER EXTREMITY STRENGTH.) ICD10 Worksheet Patient Problems: Problems Problem Status Onset Status post cervical spinal fusion Acute
[2018-03-17] MEDS: TRIAMTERENE/HCTZ 37.5/25 1 EACH CAP PO SCH (11:04)
[2018-03-17] MEDS: ACETAMINOPHEN 325 MG TAB PO PRN ×2 (12:38→19:04)
[2018-03-17] MEDS: ATENOLOL 50 MG TAB PO SCH (20:19)
[2018-03-17] MEDS: ESTROGENS,CONJUGATED 0.625 MG TAB PO SCH (20:19)
[2018-03-17] MEDS: LISINOPRIL 40 MG TAB PO SCH (20:20)
[2018-03-17] MEDS: amLODIPine BESYLATE 5 MG TAB PO SCH (20:20)
[2018-03-18] MEDS: oxyCODONE IR 5 MG TAB PO PRN ×2 (01:03→20:25)
[2018-03-18] MEDS: ACETAMINOPHEN 325 MG TAB PO PRN ×3 (06:11→17:37)
[2018-03-18] MEDS: TRIAMTERENE/HCTZ 37.5/25 1 EACH CAP PO SCH (07:42)
--- NOTE | 2018-03-18 11:48 | SOAPPROG ---
SOAP Progress Note Assessment/Plan: Assessment: Debility with balance impairment and ataxic gait due to cervical spinal stenosis , now status post ACDF of C5-C6 and C6-C7 on 03/01/2018. * Initial functional independence measure is 92 on 03/11/2018; improved to 100 as of 03/15/2018. Generally moving towards independence with mobility but requires contact guard to minimal assist for descending stairs. Ambulates greater than 150 ft with front wheeled walker and supervision. 44/56 on the Sin balance inventory. Independent to standby assist for ADLs. * Continue PT and OT to optimize mobility and activities of daily living toward the modified independence level. Dysphagia. * Advanced to regular textures and thin liquids on 03/10/2018. * Continue LIVE STUDY MANAGER. Cognitive impairment. Scored 20/30 on the [place] cognitive Assessment Test; improved to 24/30 as of 03/14/2018. Continues to have decreased memory, executive function and insight. Has concrete thinking. * Continue LIVE STUDY MANAGER. Much less discomfort with [place] J collar initiated 03/11/2018, rather than [place] collar. Dental pain. Advised use of her Sensodyne toothpaste while she is on inpatient rehabilitation. Hypertension. Well controlled. Continue atenolol 50 mg at bedtime, amlodipine 5 mg at bedtime and triamterene/hydrochlorothiazide 37.5/25 in the morning. Per her request, change lisinopril 40 mg from morning to evening, starting 03/14. Diabetes mellitus, type 2. Continue metformin as per her dosing prior to the hospital. Pain management. Continue oxycodone 5-10 mg q.3 hours p.r.n. and acetaminophen. Not using cyclobenzaprine; discontinued 03/11/2018.. Pruritus and erythema on neck where cervical collar is in contact. Prescribed clobetasol lotion p.r.n.. Nurse has covered collar with cough from a pillow case. * Resolved Possible adjustment disorder, intermittently tearful. Discussed option of antidepressant and she declines the offer. She may benefit from conversation with social work. Postmenopausal state. Continue estrogen replacement. Benign paroxysmal positional vertigo. Await further evaluation per PT and OT regarding how this affects her mobility and activities of daily living. Bladder emptying abnormality, status post bladder surgery x3. She will have bladder scanning for postvoid residuals. If the residuals are markedly elevated , she may benefit from learning how to self-catheterize versus medication approaches, especially considering that oxycodone and cyclobenzaprine may interfere with bladder emptying. Prophylaxis. She was using enoxaparin for pharmacologic DVT prophylaxis in the hospital. Has ambulated as far as 150 ft, and is able to ambulate to therapy gym from room. Encourage increased ambulation. Will not prescribe pharmacologic anticoagulation. DISPOSITION: Lives alone in a lower level apartment, with landlady living upstairs. There are 2 steps up into the home than 11 steps down to the apartment. She will need to be fully independent. Tentative discharge date set for 03/22/2018. FOLLOW-UP: She is to follow up with Dr. Sanchez in 2 weeks, which will be approximately March 20, 2018. She can follow up after her discharge.. JUSTIFICATION FOR WALKER: This patient has a mobility limitation that significantly impairs 1 or more mobility-related ADLs in the home. She can use a walker safely. Her functional mobility deficit cannot be resolved with a cane. 03/18/18 11:43 Subjective: Continues to have tooth pain on the left. Otherwise doing well. Sleeping well. No fevers or chills. Objective: Vital Signs Temp Pulse Resp BP Pulse Ox 36.6 C 57 L 16 117/71 95 03/18/18 06:12 03/18/18 06:12 03/18/18 06:12 03/18/18 07:42 03/18/18 06:12 Laboratory Results 03/06/18 06:00 03/06/18 06:00 03/17/18 03/18/18 03/19/18 05:59 05:59 05:59 Intake Total 2840 600 Output Total 275 Balance 2565 600 Physical Exam - Physical Exam General Appearance: WD/WN, alert, no apparent distress Respiratory: No respiratory distress, No accessory muscle use Skin: normal color, warm/dry Neuro/Psych: alert, normal mood/affect, oriented x 3 ICD10 Worksheet Patient Problems: Problems Problem Status Onset Status post cervical spinal fusion Acute
[2018-03-18] MEDS: LISINOPRIL 40 MG TAB PO SCH (20:24)
[2018-03-18] MEDS: metFORMIN HCL 500 MG TAB PO SCH (20:25)
[2018-03-18] MEDS: ATENOLOL 50 MG TAB PO SCH (20:25)
[2018-03-18] MEDS: ESTROGENS,CONJUGATED 0.625 MG TAB PO SCH (20:26)
[2018-03-18] MEDS: amLODIPine BESYLATE 5 MG TAB PO SCH (20:26)
[2018-03-19] MEDS: oxyCODONE IR 5 MG TAB PO PRN ×2 (01:32→16:29)
[2018-03-19] MEDS: TRIAMTERENE/HCTZ 37.5/25 1 EACH CAP PO SCH (07:18)
[2018-03-19] MEDS: ACETAMINOPHEN 325 MG TAB PO PRN (12:44)
--- NOTE | 2018-03-19 13:06 | SOAPPROG ---
SOAP Progress Note Assessment/Plan: Assessment: Debility with balance impairment and ataxic gait due to cervical spinal stenosis , now status post ACDF of C5-C6 and C6-C7 on 03/01/2018. * Initial functional independence measure is 92 on 03/11/2018; improved to 100 as of 03/15/2018. Generally moving towards independence with mobility but requires contact guard to minimal assist for descending stairs. Ambulates greater than 150 ft with front wheeled walker and supervision. 44/56 on the Sin balance inventory. Independent to standby assist for ADLs. * Continue PT and OT to optimize mobility and activities of daily living toward the modified independence level. Dysphagia. * Advanced to regular textures and thin liquids on 03/10/2018. * Continue PATIENT FINANCIAL COORDINATOR. Cognitive impairment. Scored 20/30 on the [place] cognitive Assessment Test; improved to 24/30 as of 03/14/2018. Continues to have decreased memory, executive function and insight. Has concrete thinking. * Continue PATIENT FINANCIAL COORDINATOR. Much less discomfort with [place] J collar initiated 03/11/2018, rather than [place] collar. Dental pain. Advised use of her Sensodyne toothpaste while she is on inpatient rehabilitation. Hypertension. Well controlled. Continue atenolol 50 mg at bedtime, amlodipine 5 mg at bedtime and triamterene/hydrochlorothiazide 37.5/25 in the morning. Per her request, change lisinopril 40 mg from morning to evening, starting 03/14. Diabetes mellitus, type 2. Continue metformin as per her dosing prior to the hospital. Pain management. Continue oxycodone 5-10 mg q.3 hours p.r.n. and acetaminophen. Not using cyclobenzaprine; discontinued 03/11/2018.. Pruritus and erythema on neck where cervical collar is in contact. Prescribed clobetasol lotion p.r.n.. Nurse has covered collar with cough from a pillow case. * Resolved Possible adjustment disorder, intermittently tearful. Discussed option of antidepressant and she declines the offer. She may benefit from conversation with social work. Postmenopausal state. Continue estrogen replacement. Benign paroxysmal positional vertigo. Await further evaluation per PT and OT regarding how this affects her mobility and activities of daily living. Bladder emptying abnormality, status post bladder surgery x3. She will have bladder scanning for postvoid residuals. If the residuals are markedly elevated , she may benefit from learning how to self-catheterize versus medication approaches, especially considering that oxycodone and cyclobenzaprine may interfere with bladder emptying. Prophylaxis. She was using enoxaparin for pharmacologic DVT prophylaxis in the hospital. Has ambulated as far as 150 ft, and is able to ambulate to therapy gym from room. Encourage increased ambulation. Will not prescribe pharmacologic anticoagulation. DISPOSITION: Lives alone in a lower level apartment, with landlady living upstairs. There are 2 steps up into the home than 11 steps down to the apartment. She will need to be fully independent. Tentative discharge date set for 03/22/2018. FOLLOW-UP: She is to follow up with Dr. Sanchez in 2 weeks, which will be approximately March 20, 2018. She can follow up after her discharge.. JUSTIFICATION FOR WALKER: This patient has a mobility limitation that significantly impairs 1 or more mobility-related ADLs in the home. She can use a walker safely. Her functional mobility deficit cannot be resolved with a cane. 03/19/18 13:04 Subjective: Sleep was interrupted by [place] conditions outside. She has some tooth pain but tolerable. Otherwise doing well, without complaint. Working on stairs which is the remaining barrier to her going home. Objective: Vital Signs Temp Pulse Resp BP Pulse Ox 36.6 C 56 L 16 105/72 95 03/19/18 07:52 03/19/18 07:52 03/19/18 07:52 03/19/18 07:52 03/19/18 07:52 Laboratory Results 03/06/18 06:00 03/06/18 06:00 03/18/18 03/19/18 03/20/18 05:59 05:59 05:59 Intake Total 600 500 240 Output Total 150 350 Balance 600 350 -110 Physical Exam - Physical Exam General Appearance: WD/WN, alert, no apparent distress Respiratory: No respiratory distress, No accessory muscle use Skin: normal color, warm/dry Neuro/Psych: alert, normal mood/affect, oriented x 3 ICD10 Worksheet Patient Problems: Problems Problem Status Onset Status post cervical spinal fusion Acute
[2018-03-19] MEDS: ESTROGENS,CONJUGATED 0.625 MG TAB PO SCH (20:01)
[2018-03-19] MEDS: metFORMIN HCL 500 MG TAB PO SCH (20:01)
[2018-03-19] MEDS: ATENOLOL 50 MG TAB PO SCH (20:04)
[2018-03-19] MEDS: LISINOPRIL 40 MG TAB PO SCH (20:04)
[2018-03-19] MEDS: amLODIPine BESYLATE 5 MG TAB PO SCH (20:05)
[2018-03-20] MEDS: oxyCODONE IR 5 MG TAB PO PRN ×2 (01:03→20:27)
[2018-03-20] MEDS: TRIAMTERENE/HCTZ 37.5/25 1 EACH CAP PO SCH (08:28)
[2018-03-20] MEDS: ACETAMINOPHEN 325 MG TAB PO PRN ×2 (08:28→13:53)
--- NOTE | 2018-03-20 13:25 | SOAPPROG ---
SOAP Progress Note Assessment/Plan: Assessment: Debility with balance impairment and ataxic gait due to cervical spinal stenosis , now status post ACDF of C5-C6 and C6-C7 on 03/01/2018. * Initial functional independence measure is 92 on 03/11/2018; improved to 100 as of 03/15/2018. Generally moving towards independence with mobility but requires contact guard to minimal assist for descending stairs. Ambulates greater than 150 ft with front wheeled walker and supervision. 44/56 on the Sin balance inventory. Independent to standby assist for ADLs. * Continue PT and OT to optimize mobility and activities of daily living toward the modified independence level. * 4+/5 PROXIMAL AND DISTAL STRENGTH OF BOTH UPPER AND LOWER EXTREMITIES. CONTINUE TO WORK ON TRUNK STABILITY/CORE STRENGTH Dysphagia. * Advanced to regular textures and thin liquids on 03/10/2018. * Continue CROWN POUNCER. Cognitive impairment. Scored 20/30 on the [place] cognitive Assessment Test; improved to 24/30 as of 03/14/2018. Continues to have decreased memory, executive function and insight. Has concrete thinking. * Continue CROWN POUNCER. Much less discomfort with [place] J collar initiated 03/11/2018, rather than [place] collar. Dental pain. Advised use of her Sensodyne toothpaste while she is on inpatient rehabilitation. Hypertension. BLOOD PRESSURE 03/20 127/65. Well controlled. Continue atenolol 50 mg at bedtime, amlodipine 5 mg at bedtime and triamterene/ hydrochlorothiazide 37.5/25 in the morning. Per her request, change lisinopril 40 mg from morning to evening, starting 03/14/2018. Diabetes mellitus, type 2. Continue metformin as per her dosing prior to the hospital. Pain management. DENIES PAIN MORNING OF 03/20 Continue oxycodone 5-10 mg q.3 hours p.r.n. and acetaminophen. Not using cyclobenzaprine; discontinued 2017.. Pruritus and erythema on neck where cervical collar is in contact. Prescribed clobetasol lotion p.r.n.. Nurse has covered collar with cough from a pillow case. * Resolved Possible adjustment disorder, intermittently tearful. Discussed option of antidepressant and she declines the offer. She may benefit from conversation with social work. Postmenopausal state. Continue estrogen replacement. Benign paroxysmal positional vertigo. Await further evaluation per PT and OT regarding how this affects her mobility and activities of daily living. Bladder emptying abnormality, status post bladder surgery x3. She will have bladder scanning for postvoid residuals. If the residuals are markedly elevated , she may benefit from learning how to self-catheterize versus medication approaches, especially considering that oxycodone and cyclobenzaprine may interfere with bladder emptying. Prophylaxis. She was using enoxaparin for pharmacologic DVT prophylaxis in the hospital. Has ambulated as far as 150 ft, and is able to ambulate to therapy gym from room. Encourage increased ambulation. Will not prescribe pharmacologic anticoagulation. DISPOSITION: Lives alone in a lower level apartment, with landlady living upstairs. There are 2 steps up into the home than 11 steps down to the apartment. She will need to be fully independent. Tentative discharge date set for 03/22/2018. PATIENT IS ANTICIPATING DISCHARGE THIS SUNDAY. FOLLOW-UP: She is to follow up with Dr. Sanchez in 2 weeks, which will be approximately March 20, 2018. She can follow up after her discharge.. JUSTIFICATION FOR WALKER: This patient has a mobility limitation that significantly impairs 1 or more mobility-related ADLs in the home. She can use a walker safely. Her functional mobility deficit cannot be resolved with a cane. 03/20/18 13:23 Subjective: NO COMPLAINTS. DENIES HEADACHE. DENIES DYSPHAGIA. DENIES NEW ONSET UPPER LOWER EXTREMITY SENSORY DISTURBANCE HER WEAKNESS. SHE IS PLEASED WITH HER THERAPY PROGRESS THUS FAR. Objective: Vital Signs Temp Pulse Resp BP Pulse Ox 36.7 C 56 L 15 127/68 H 92 03/20/18 08:00 03/20/18 08:00 03/20/18 08:00 03/20/18 08:00 03/20/18 08:00 Laboratory Results 03/06/18 06:00 03/06/18 06:00 03/19/18 03/20/18 03/21/18 05:59 05:59 05:59 Intake Total 500 720 840 Output Total 150 650 Balance 350 70 840 Physical Exam - Physical Exam General Appearance: WD/WN, alert, no apparent distress EENT: other (HARD CERVICAL COLLAR IN PLACE) Respiratory: lungs clear, normal breath sounds Cardiac/Chest: No edema Abdomen: normal bowel sounds, non-tender, soft Skin: warm/dry Neuro/Psych: No motor weakness, No sensory deficit (SLIGHT STEPPAGE GAIT WITH AMBULATING WITH FWW) ICD10 Worksheet Patient Problems: Problems Problem Status Onset Status post cervical spinal fusion Acute
[2018-03-20] MEDS: ATENOLOL 50 MG TAB PO SCH (20:27)
[2018-03-20] MEDS: ESTROGENS,CONJUGATED 0.625 MG TAB PO SCH (20:27)
[2018-03-20] MEDS: amLODIPine BESYLATE 5 MG TAB PO SCH (20:27)
[2018-03-20] MEDS: LISINOPRIL 40 MG TAB PO SCH (20:27)
[2018-03-21] MEDS: TRIAMTERENE/HCTZ 37.5/25 1 EACH CAP PO SCH (09:02)
--- NOTE | 2018-03-21 09:59 | SOAPPROG ---
[facility] Progress Note Assessment/Plan: Assessment: Debility with balance impairment and ataxic gait due to cervical spinal stenosis , now status post ACDF of C5-C6 and C6-C7 on 03/01/2018. SHE REPORTS THAT OVERALL HER GAIT QUALITY HAS IMPROVED COMPARED TO PRE SURGICAL STATUS. SHE DOES HAVE A LITTLE BIT OF LEFT KNEE HYPEREXTENSION DUE TO DUE TO HAMSTRING THIS. PHYSICAL THERAPIST REPORTS THAT SHE IS NOT SCISSORING * Initial functional independence measure is 92 on 03/11/2018; improved to 100 as of 03/15/2018. Generally moving towards independence with mobility but requires contact guard to minimal assist for descending stairs. Ambulates greater than 150 ft with front wheeled walker and supervision. 44/56 on the Sin balance inventory. Independent to standby assist for ADLs. * Continue PT and OT to optimize mobility and activities of daily living toward the modified independence level. * 4+/5 PROXIMAL AND DISTAL STRENGTH OF BOTH UPPER AND LOWER EXTREMITIES. CONTINUE TO WORK ON TRUNK STABILITY/CORE STRENGTH Dysphagia. * Advanced to regular textures and thin liquids on 03/10/2018. * Continue CIGAR HEAD PIERCER. Cognitive impairment. Scored 20/30 on the [place] cognitive Assessment Test; improved to 24/30 as of 03/14/2018. Continues to have decreased memory, executive function and insight. Has concrete thinking. * Continue CIGAR HEAD PIERCER. Much less discomfort with [place] J collar initiated 03/11/2018, rather than [place] collar. Dental pain. Advised use of her Sensodyne toothpaste while she is on inpatient rehabilitation. Hypertension. BLOOD PRESSURE 03/21 114/71 Well controlled. Continue atenolol 50 mg at bedtime, amlodipine 5 mg at bedtime and triamterene/ hydrochlorothiazide 37.5/25 in the morning. Per her request, change lisinopril 40 mg from morning to evening, starting 03/14/2018. Diabetes mellitus, type 2. Continue metformin as per her dosing prior to the hospital. Pain management. DENIES PAIN MORNING OF 03/20 Continue oxycodone 5-10 mg q.3 hours p.r.n. and acetaminophen. Not using cyclobenzaprine; discontinued 2017.. Pruritus and erythema on neck where cervical collar is in contact. Prescribed clobetasol lotion p.r.n.. Nurse has covered collar with cough from a pillow case. * Resolved Possible adjustment disorder, intermittently tearful. Discussed option of antidepressant and she declines the offer. She may benefit from conversation with social work. Postmenopausal state. Continue estrogen replacement. Benign paroxysmal positional vertigo. Await further evaluation per PT and OT regarding how this affects her mobility and activities of daily living. Bladder emptying abnormality, status post bladder surgery x3. DISCUSSED WITH NURSING THAT SHE IS VOIDING INDEPENDENTLY MOST RECENT POSTVOID RESIDUAL 0. She will have bladder scanning for postvoid residuals. If the residuals are markedly elevated, she may benefit from learning how to self-catheterize versus medication approaches, especially considering that oxycodone and cyclobenzaprine may interfere with bladder emptying. Prophylaxis. She was using enoxaparin for pharmacologic DVT prophylaxis in the hospital. Has ambulated as far as 150 ft, and is able to ambulate to therapy gym from room. Encourage increased ambulation. Will not prescribe pharmacologic anticoagulation. DISPOSITION: Lives alone in a lower level apartment, with landlady living upstairs. There are 2 steps up into the home than 11 steps down to the apartment. She will need to be fully independent. Tentative discharge date set for 03/22/2018. PATIENT IS ANTICIPATING DISCHARGE THIS SUNDAY. FOLLOW-UP: She is to follow up with Dr. Sanchez in 2 weeks, which will be approximately March 20, 2018. She can follow up after her discharge.. JUSTIFICATION FOR WALKER: This patient has a mobility limitation that significantly impairs 1 or more mobility-related ADLs in the home. She can use a walker safely. Her functional mobility deficit cannot be resolved with a cane. 03/21/18 10:15 Subjective: NO COMPLAINTS THIS MORNING. SHE REPORTS SHE HAD A GOOD NIGHT LAST NIGHT. SHE IS PLEASED WITH THE PROGRESS OF HER SHE IS READY FOR IMPENDING DISCHARGE TOMORROW. THERAPY SESSIONS. Objective: Vital Signs Temp Pulse Resp BP Pulse Ox 36.4 C 58 L 16 114/71 94 03/21/18 07:31 03/21/18 07:31 03/21/18 07:31 03/21/18 07:31 03/21/18 07:31 Laboratory Results 03/06/18 06:00 03/06/18 06:00 03/20/18 03/21/18 03/22/18 05:59 05:59 05:59 Intake Total 720 1580 360 Output Total 650 400 Balance 70 1180 360 Physical Exam - Physical Exam General Appearance: WD/WN, alert, no apparent distress Respiratory: lungs clear, normal breath sounds Cardiac/Chest: No edema Abdomen: non-tender, soft Extremities: No swelling, No Le's sign (SHE HAS 4+/5 STRENGTH OF ANTERIOR/ MIDDLE DELTOIDS, BICEPS, TRICEPS, WRIST AND FINGER EXTENSORS. 4/5 RIGHT AND LEFT HIP FLEXORS MILD WEAKNESS OF LEFT HAMSTRINGS COMPARED TO RIGHT.) Neuro/Psych: No sensory deficit (GAIT: AMBULATES WITH FWW. NORMAL STEP AND STRIDE LENGTH. IT IS MILD LEFT KNEE HYPEREXTENSION. NO ANKLE CLONUS. NEGATIVE CHRISTIANSON'S TEST.) ICD10 Worksheet Patient Problems: Problems Problem Status Onset Status post cervical spinal fusion Acute
--- NOTE | 2018-03-21 10:54 | PDOREHIP ---
Admission [facility] - Admission - 3 Day Assessment Period Admission Date/Day 1: 03/05/18 Day 2: 03/06/18 Day 3: 03/07/18 - Active Diagnoses Comorbidities and Co-existing Conditions at Admission: 72623. DM (e.g. diabetic retinopathy, nephropathy, and neuropathy) - Skin Conditions # Stage 1 Pressure Ulcers-Admission: 0 # Stage 2 Pressure Ulcers-Admission: 0 # Stage 3 Pressure Ulcers-Admission: 0 # Stage 4 Pressure Ulcers-Admission: 0 # Unstageable Pressure Ulcers (Non-remove Dress)-Admission: 0 # Unstageable Pressure Ulcers ([place]/Eschar)-Admission: 0 # Unstageable Pressure Ulcers (Deep Tissue Injury)-Admission: 0 Discharge [facility] - Discharge - 3 Day Assessment Period 2 Days Prior to Anticipated Discharge Date: 03/20/18 1 Day Prior to Anticipated Discharge Date: 03/21/18 Anticipated Discharge Date: 03/22/18
[2018-03-21] MEDS: ACETAMINOPHEN 325 MG TAB PO PRN (11:34)
--- NOTE | 2018-03-21 19:12 | GDS ---
ADMITTING DIAGNOSIS: Debility, status post anterior cervical decompression and fusion, C5-6, C6-7. DISCHARGE DIAGNOSIS: Debility, status post anterior cervical decompression and fusion, C5-6, C6-7. OTHER DISCHARGE DIAGNOSES: 1. Dysphagia, resolved. 2. Hypertension. 3. Type 2 diabetes mellitus. 4. Postmenopausal state. 5. Benign paroxysmal positional vertigo. 6. Bladder dysfunction. COMPLICATIONS: None. HISTORY AND HOSPITAL COURSE: The patient underwent elective ACDF C5-6 and C6-7 for progressive gait dysfunction that had been present and worsening for approximately 1 year prior to surgery. Cervical spine MRI showed moderate to severe central canal stenosis C5-6 and C6-C7. Hospital stay was uncompl icated with the exception of some mild dysphagia. Due to her gait issues and dysphagia, she was felt appropriate for inpatient rehabilitation. She was admitted to the inpatient rehabilitation facility, [facility] on 03/06/2018. She was i nitially placed on a dysphagia 2 diet with thin liquids. Initially, she was ambulating 150 feet with FWW and cues for safety. Scissoring gait was noted. Was able to climb and descend 12 steps with bi lateral rails. For this reason, she was noted to be elevated fall risk due to scissoring gait and im paired proprioception. She received integrated physical and occupational therapy to optimize mobilit y and ADLs. She also received speech and language pathology secondary to dysphagia. She was noted t o have mild cognitive impairment and scored 20/30 on the [place] Cognitive Assessment test. She was noted to have decreased executive function and decreased recall and attention. Her FIM score was no radha to be 92 on 03/11/18, and improved to 100 as of 03/15/2018. She continued to make progress towar ds independence with mobility, but required contact guard to minimal assist for descending stairs. S he was able to ambulate greater than 150 feet with front-wheeled walker and supervision. She scored 44/56 on Sin Balance Inventory. Medical management included management of hypertension, management of diabetes mellitus type 2, and pain management. Discharge date was set for 03/22/2018. She was co unseled to perform skin checks twice a day to avoid breakdown or irritation under cervical collar. S he is independent in her room from 8 a.m. to 6 p.m. She was using an FWW without difficulty, but was noted to have some intermittent left knee hyperextension secondary to hamstring weakness. Home steph fications include hand-held shower and grab bars. Case management helped schedule outpatient therapi es, including physical therapy, occupational therapy, speech and language pathology, and home health. DISCHARGE PLANNING: She is discharged in good condition and medically stable. 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 MEDICATIONS AT DISCHARGE: Norvasc 5 mg p.o. q.h.s., atenolol 50 mg p.o. h.s., Temovate topical 1 nellie lication TP b.i.d. p.r.n., Estrogen 0.625 mg p.o. h.s., Lisinopril 40 mg p.o. h.s., Metformin 500 mg p.o., oxycodone 5-10 mg p.o. q.3 hours, Senokot 1 tablet p.o. b.i.d., p.r.n. constipation, trazodone 50 mg p.o. h.s. p.r.n. sleep/insomnia, triamterene/HCTZ 1 p.o. daily ISSUES TO BE ASSESSED BY FOLLOWUP: 1. Inspect skin under cervical collar 2 times per day. 2. Type 2 diabetes mellitus. Manage blood sugars daily. 3. Hypertension. Continue antihypertensives, including Norvasc, atenolol and lisinopril. 4. Pain management. Oxycodone 5-10 mg q.3 hours p.r.n. severe pain. Tylenol for mild to moderate p ain. /[id number]/MODL
[2018-03-21] MEDS: LISINOPRIL 40 MG TAB PO SCH (20:23)
[2018-03-21] MEDS: amLODIPine BESYLATE 5 MG TAB PO SCH (20:23)
[2018-03-21] MEDS: ATENOLOL 50 MG TAB PO SCH (20:23)
[2018-03-21] MEDS: ESTROGENS,CONJUGATED 0.625 MG TAB PO SCH (20:23)
[2018-03-22 07:46] VITALS: BP 106/69
[2018-03-22] MEDS: TRIAMTERENE/HCTZ 37.5/25 1 EACH CAP PO SCH (08:48)
[2018-03-22] MEDS: ACETAMINOPHEN 325 MG TAB PO PRN (11:52)
== END 2018-03-22 16:50 | disposition home health service (06) | DRG 561 ==
LOC: BREH 17:23
PROVIDERS: ADMIT Internal Medicine; ATTEND Internal Medicine
PROC: F07M3ZZ Motor Function Treatment of Musculoskeletal System - Whole Body (ICD-10-PCS; principal; 2018-03-05)
PROC: F0636ZZ Communicative/Cognitive Integration Skills Treatment of Neurological System - Whole Body (ICD-10-PCS; principal; 2018-03-05)
PROC: F08Z7ZZ Vocational Activities and Functional Community or Work Reintegration Skills Treatment (ICD-10-PCS; principal; 2018-03-05)
DX: Z47.89 Encounter for other orthopedic aftercare (principal); Z98.1 Arthrodesis status; R13.10 Dysphagia, unspecified; R26.9 Unspecified abnormalities of gait and mobility; N32.9 Bladder disorder, unspecified; H81.10 Benign paroxysmal vertigo, unspecified ear; E11.9 Type 2 diabetes mellitus without complications; I10 Essential (primary) hypertension; L29.9 Pruritus, unspecified
CPT/HCPCS: 92507-GN; 92523-GN; 92526-GN; 92610-GN; 97110-GO; 97110-GP; 97112-GP; 97116-GP; 97140-GP; 97161-GP; 97166-GO; 97530-GO; 97530-GP; 97535-GO; G0009